=== PATIENT | female | born 1945 | race Caucasian/White ===

== ENCOUNTER → 2017-05-06 | Outpatient (CLI) | payer OTHER | LOC: CIMAGING 13:08 | PROVIDERS: ATTEND Family Medicine | DX: K59.00 Constipation, unspecified (principal); K76.89 Other specified diseases of liver | CPT/HCPCS: 74177-PO ==

== ENCOUNTER → 2017-09-22 | Outpatient (CLI) | payer OTHER | LOC: BRMIMAGING 13:39 | PROVIDERS: ATTEND Family Medicine | DX: Z12.31 Encounter for screening mammogram for malignant neoplasm of breast (principal) | CPT/HCPCS: G0202 ==